=== PATIENT | female | born 1980 | race Caucasian/White ===

== ENCOUNTER 2016-09-21 09:46 | Emergency (ER) | payer MEDICAID ==
[~2016-09-21] VITALS: Ht 160 cm; Wt 68.5 kg
[2016-09-21 09:48] VITALS: Ht 160 cm; Wt 68.5 kg
[2016-09-21 10:47] LABS: ADD SCAN DIFF NO
[2016-09-21 10:51] LABS: BASOPHILS % 0.5 % (0.0-2.0); EOSINOPHILS # 0.1 10^3/ul (0.0-0.5); HEMATOCRIT 45.5 % (37.0-47.0); HEMOGLOBIN 15.4 g/dl (12.0-16.0); LYMPHOCYTES # 1.8 10^3/ul (0.8-2.9); LYMPHOCYTES % 22.3 % (15.0-51.0); MEAN CORPUSCULAR HEMOGLOBIN 30.4 pg (29.0-33.0); MEAN CORPUSCULAR HGB CONC 33.8 g/dl (32.0-37.0); MEAN CORPUSCULAR VOLUME 89.9 fl (82.0-101.0); MEAN PLATELET VOLUME 9.7 fl (7.4-10.4); MONOCYTE # 0.5 10^3/ul (0.3-0.9); MONOCYTES % 6.5 % (0.0-11.0); NEUTROPHIL # 5.4 10^3/ul (1.6-7.5); NEUTROPHILS % 69.2 % (39.0-77.0); PLATELET COUNT 268 10^3/UL (140-415); RED BLOOD COUNT 5.06 10^6/ul (4.20-5.40); RED CELL DISTRIBUTION WIDTH 13.4 % (11.5-14.5); WHITE BLOOD COUNT 7.8 10^3/ul (4.8-10.8)
[2016-09-21 11:01] LABS: ADD UMIC YES; UR ASCORBIC ACID NEGATIVE (NEGATIVE); UR BILIRUBIN (Dip) NEGATIVE (NEGATIVE); UR BLOOD (Dip) 1+ mg/dL (NEGATIVE); UR CLARITY CLEAR (CLEAR); UR COLOR YELLOW (YELLOW); UR GLUCOSE (Dip) NEGATIVE (NEGATIVE); UR KETONES (Dip) NEGATIVE (NEGATIVE); UR LEUKOCYTE ESTERASE (Dip) NEGATIVE Leu/ul (NEGATIVE); UR NITRITE (Dip) NEGATIVE (NEGATIVE); UR RBC 1 /HPF (0-5); UR SPECIFIC GRAVITY (Dip) 1.016 (1.003-1.030); UR TOTAL PROTEIN (Dip) NEGATIVE (NEGATIVE); UR UROBILINOGEN (Dip) NEGATIVE (NEGATIVE)
--- NOTE | 2016-09-21 11:20 | RADRPT ---
PROCEDURE: US OB. CLINICAL INDICATION: Vaginal bleeding in . TECHNIQUE: Transabdominal and endovaginal imaging of the uterus is available for review COMPARISON: None available FINDINGS: No intrauterine is identified. The endometrial stripe is homogeneous and measures 9 mm in thickness. The uterus is otherwise unremarkable. The right ovary measures 2.0 x 0.9 x 1.4 cm and the left ovary measures 2.2 x 1.2 x 1.3 cm. No adnexal mass is identified. No free fluid is noted within the pelvis. IMPRESSION: No intrauterine identified. There are no adnexal masses. Correlation with serial beta HC Gs and repeat pelvic ultrasound as clinically indicated, is recommended, as ectopic is not excluded on this examination. RPTAT: HH .Sheri Jones MD, Date Time Electronically viewed and signed by .Sheri Jones MD, on 09/21/2016 11:19 .G/
--- NOTE | 2016-09-21 11:52 | ERD ---
ER Documentation Chief Complaint Date/Time DATE: 09/21/16 TIME: 11:50 Chief Complaint 4 WEEKS WITH SPOTTING HPI This 36-year-old female presents approximately 4-5 weeks by dates. Having some spotting yesterday which improved today. She is fevers, vomiting, shortness with chest pain. She is a G4 para 3. Initially she thought she might want to terminate the but more recently she was decided to keep her . She is does not have care as of yet. ROS All systems reviewed and are negative except as per history of present illness. Allergies Allergies: Coded Allergies: No Known Drug Allergy (Verified Allergy, Unknown, 09/21/16) PMhx/Soc Medical and Surgical Hx: pt denies Medical Hx History of Surgery: Yes (3 C SECTION) Anesthesia Reaction: No Hx Neurological Disorder: No Hx Respiratory Disorders: No Hx Cardiac Disorders: No Hx Psychiatric Problems: No Hx Miscellaneous Medical Probl: No Hx Alcohol Use: No Hx Substance Use: No Hx Tobacco Use: No Smoking Status: Never smoker Physical Exam Vitals Vital Signs Date Time Temp Pulse Resp B/P Pulse Ox O2 Delivery O2 Flow Rate FiO2 09/21/16 09:48 98.1 73 20 121/73 99 Physical Exam Const: [] Alert, not ill-appearing. Head: Atraumatic Eyes: Normal Conjunctiva ENT: Normal External Ears, Nose and Mouth. Neck: Full range of motion..~ No meningismus. Resp: Clear to auscultation bilaterally Cardio: Regular rate and rhythm, no murmurs Abd: Soft, non tender, non distended. Normal bowel sounds Skin: No petechiae or rashes Back: No midline or flank tenderness Ext: No cyanosis, or edema Neur: Awake and alert Psych: Normal Mood and Affect Result Diagram: 09/21/16 1038 Results 24 hrs Laboratory Tests Test 09/21/16 10:35 09/21/16 10:38 Urine Color YELLOW Urine Clarity CLEAR Urine pH 5.0 Urine Specific [place] 1.016 Urine Ketones NEGATIVEmg/dL Urine Nitrite NEGATIVEmg/dL Urine Bilirubin NEGATIVEmg/dL Urine Urobilinogen NEGATIVEmg/dL Urine Leukocyte Esterase NEGATIVELeu/ul Urine Microscopic RBC 1/HPF Urine Microscopic WBC 0/HPF Urine Hemoglobin 1+mg/dL Urine Glucose NEGATIVEmg/dL Urine Total Protein NEGATIVEmg/dl White Blood Count 7.810^3/ul Red Blood Count 5.0610^6/ul Hemoglobin 15.4g/dl Hematocrit 45.5% Mean Corpuscular Volume 89.9fl Mean Corpuscular Hemoglobin 30.4pg Mean Corpuscular Hemoglobin Concent 33.8g/dl Red Cell Distribution Width 13.4% Platelet Count 58841^3/UL Mean Platelet Volume 9.7fl Neutrophils % 69.2% Lymphocytes % 22.3% Monocytes % 6.5% Eosinophils % 1.0% Basophils % 0.5% Nucleated Red Blood Cells % 0.0/100WBC Neutrophils # 5.410^3/ul Lymphocytes # 1.810^3/ul Monocytes # 0.510^3/ul Eosinophils # 0.110^3/ul Basophils # 0.010^3/ul Nucleated Red Blood Cells # 0.010^3/ul Beta HCG, Quantitative 221.5mIU/ml Procedures/MDM Quantitative hCG is 221. Patient is Rh+. Pelvic ultrasound shows no appreciable intrauterine or and no adnexal masses. Patient presents with vaginal bleeding which is actually improving and minimal suprapubic cramping. She HAS a 5 week . There is no visible intrauterine or extrauterine . Differential includes early normal , ectopic , complete or incomplete . Patient will be discharged home with instructions for 2 day recheck of hormones possibly ultrasound. Patient should otherwise return for worsening bleeding, fevers, new worsening symptoms. There is no signs or symptoms to suggest appendicitis, acute abdomen, additional causes of abdominal pain. Departure Diagnosis: Primary Impression: Vaginal bleeding in patient at less than 20 weeks ges... Condition: Stable Patient Instructions: Bleeding During Early Additional Instructions: No seen on ultrasound today. Recheck hormone level and possibly ultrasound in 48 hours. May be early normal , miscarriage or ectopic DIANELYS JACKMAN MD Sep 21, 2016 11:52
[2016-09-21 12:33] VITALS: BP 120/70; PULSE 79; RESP 20; TEMP 98.2
== END 2016-09-21 12:33 | disposition home or self-care (01) ==
LOC: FTE 09:46
DX: O20.9 Hemorrhage in early pregnancy, unspecified (principal); Z3A.01 Less than 8 weeks gestation of pregnancy
CPT/HCPCS: 36415; 76801; 76817; 81001; 84702; 85025; 86900; 86901; Z7502

== ENCOUNTER 2016-09-23 09:52 | Emergency (ER) | payer MEDICAID ==
[~2016-09-23] VITALS: Ht 157.5 cm; Wt 56.6 kg
[2016-09-23 09:59] VITALS: Ht 157.5 cm; Wt 56.6 kg
[2016-09-23 11:06] LABS: ADD SCAN DIFF NO
[2016-09-23 11:11] LABS: BASOPHILS % 0.4 % (0.0-2.0); EOSINOPHILS # 0.1 10^3/ul (0.0-0.5); EOSINOPHILS % 1.2 % (0.0-7.0); HEMATOCRIT 39.5 % (37.0-47.0); HEMOGLOBIN 14.1 g/dl (12.0-16.0); LYMPHOCYTES # 1.8 10^3/ul (0.8-2.9); LYMPHOCYTES % 19.6 % (15.0-51.0); MEAN CORPUSCULAR HGB CONC 35.7 g/dl (32.0-37.0); MEAN CORPUSCULAR VOLUME 89.8 fl (82.0-101.0); MONOCYTE # 0.6 10^3/ul (0.3-0.9); MONOCYTES % 6.7 % (0.0-11.0); NEUTROPHIL # 6.7 10^3/ul (1.6-7.5); NEUTROPHILS % 71.6 % (39.0-77.0); PLATELET COUNT 252 10^3/UL (140-415); RED CELL DISTRIBUTION WIDTH 13.1 % (11.5-14.5); WHITE BLOOD COUNT 9.3 10^3/ul (4.8-10.8)
--- NOTE | 2016-09-23 11:26 | RADRPT ---
PROCEDURE: US OB. CLINICAL INDICATION: Vaginal bleeding in . TECHNIQUE: Transabdominal and endovaginal imaging of the uterus is available for review COMPARISON: Pelvic ultrasound dated 09/21/2016 FINDINGS: No intrauterine is identified. The endometrial stripe is homogeneous and measures 15 mm i n thickness. There is a sub centimeter posterior intramural fibroid. The right ovary measures 2.7 x 1.0 x 1.6 cm and the left ovary measures 2.9 x 1.5 x 2.0 cm. No adnexal mass is identified. Small free fluid is noted within the pelvis. IMPRESSION: No significant interval change. No intrauterine identified. There are no adnexal masses. Correlation with serial beta HCGs and repeat pelvic ultrasound as clinically indicated, is recomme nded, as ectopic is not excluded on this examination. RPTAT: HH .Sheri Jones MD, Date Time Electronically viewed and signed by .Sheri Jones MD, on 09/23/2016 11:26 .G/
[2016-09-23] MEDS ORDERED: ACET325T33 PO (12:33)
--- NOTE | 2016-09-23 15:55 | ERD ---
ER Documentation Chief Complaint Date/Time DATE: 09/23/16 TIME: 15:54 Chief Complaint 6 WEEKS ,VAGINAL BLEEDING.NO PAIN HPI 36-year-old female patient who is a A0 presents to the ED complaining of vaginal bleeding that started 2 days ago. Reports that she does not know the name of her [employer] same. Patient states that the cramping is improving as well as the bleeding. Patient was instructed to return to the ED in 2 days for repeat beta hCG and ultrasound. Denies any dysuria, urgency, frequency, abdominal pain, nausea, vomiting, diarrhea, constipation. Reports that her last menses was on August 11, 2016. ROS All systems reviewed and are negative except as per history of present illness. Medications Home Meds Active Scripts Acetaminophen* (Tylenol*) 325 Mg Tablet, 1 TAB PO Q6 Y for PAIN AND OR ELEVATED TEMP, #20 TAB Prov:LV THOMAS PA-C 09/23/16 Allergies Allergies: Coded Allergies: No Known Drug Allergy (Verified Allergy, Unknown, 09/21/16) PMhx/Soc History of Surgery: Yes (3 C SECTION) Anesthesia Reaction: No Hx Neurological Disorder: No Hx Respiratory Disorders: No Hx Cardiac Disorders: No Hx Psychiatric Problems: No Hx Miscellaneous Medical Probl: No Hx Alcohol Use: No Hx Substance Use: No Hx Tobacco Use: No Smoking Status: Never smoker Physical Exam Vitals Vital Signs Date Time Temp Pulse Resp B/P Pulse Ox O2 Delivery O2 Flow Rate FiO2 09/23/16 09:59 98.3 72 18 120/71 98 Physical Exam Const: Qek-hpz-ljlvzpfzv, well-nourished. In no acute distress. Head: Atraumatic, normocephalic Eyes: Normal Conjunctiva without injection. No purulent discharge. ENT: Normal external ear, nose. Moist oropharynx without tonsillar exudates. Non -erythematous pharynx. Uvula midline. No drooling. No trismus. Neck: No cervical midline tenderness. Full range of motion. No meningismus. No cervical lymphadenopathy. No JVD. Resp: Clear to auscultation bilaterally. No wheezing, rhonchi, rales, or crackles. No accessory muscle use. No retractions. Cardio: Regular rate and rhythm. No murmurs, rubs or gallops. Abd: Soft, nontender, non distended. Normal bowel sounds. No palpable masses. No rebound tenderness. No guarding. Negative McBurney's point. Negative psoas sign. Negative obturator sign. Skin: No petechiae or rashes Back: No midline tenderness. No CVA tenderness. Ext: No cyanosis, or edema. Neur: Awake and alert. Normal gait. Normal coordination. Psych: Normal Mood and Affect Result Diagram: 09/23/16 1035 Results 24 hrs Laboratory Tests Test 09/23/16 10:35 White Blood Count 9.310^3/ul Red Blood Count 4.4010^6/ul Hemoglobin 14.1g/dl Hematocrit 39.5% Mean Corpuscular Volume 89.8fl Mean Corpuscular Hemoglobin 32.0pg Mean Corpuscular Hemoglobin Concent 35.7g/dl Red Cell Distribution Width 13.1% Platelet Count 85028^3/UL Mean Platelet Volume 10.0fl Neutrophils % 71.6% Lymphocytes % 19.6% Monocytes % 6.7% Eosinophils % 1.2% Basophils % 0.4% Nucleated Red Blood Cells % 0.0/100WBC Neutrophils # 6.710^3/ul Lymphocytes # 1.810^3/ul Monocytes # 0.610^3/ul Eosinophils # 0.110^3/ul Basophils # 0.010^3/ul Nucleated Red Blood Cells # 0.010^3/ul Beta HCG, Quantitative 306.7mIU/ml Procedures/MDM This is a 36-year-old female patient with no significant past medical history who is a A0 presents the ED for a repeat beta hCG and ultrasound. Patient is afebrile and nontoxic-appearing. An ultrasound, beta-hCG, CBC, type and RH, UA was ordered to evaluate patient. CBC: No evidence of severe infection or anemia beta Hc.5 increased to 306.7 today PROCEDURE: US OB. CLINICAL INDICATION: Vaginal bleeding in . TECHNIQUE: Transabdominal and endovaginal imaging of the uterus is available for review COMPARISON: Pelvic ultrasound dated 09/21/2016 FINDINGS: No intrauterine is identified. The endometrial stripe is homogeneous and measures 15 mm in thickness. There is a sub centimeter posterior intramural fibroid. The right ovary measures 2.7 x 1.0 x 1.6 cm and the left ovary measures 2.9 x 1.5 x 2.0 cm. No adnexal mass is identified. Small free fluid is noted within the pelvis. IMPRESSION: No significant interval change. No intrauterine identified. There are no adnexal masses. Correlation with serial beta HCGs and repeat pelvic ultrasound as clinically indicated, is recommended, as ectopic is not excluded on this examination. Patient's bleeding symptoms have stabilized while in the department. Low suspicion for symptomatic anemia, ectopic , sepsis, PID, appendicitis, ovarian torsion, tubo-ovarian abscess, surgical abdomen, or other emergent conditions. At this time ectopic cannot be ruled out. Patient was educated that there is a risk for threatened . Patient to follow up with [employer] in 2 days for further evaluation and treatment to repeat beta Hcg and ultrasound. Patient is to return sooner to the ED for any worsening symptoms. Patient's questions were answered. Patient understood and agreed with discharge plan. Departure Diagnosis: Primary Impression: Vaginal bleeding in patient at less than 20 weeks ges... Condition: Stable Patient Instructions: Bleeding During Early Referrals: [facility] [place] YOU HAVE RECEIVED A MEDICAL SCREENING EXAM AND THE RESULTS INDICATE THAT YOU DO NOT HAVE A CONDITION THAT REQUIRES URGENT TREATMENT IN THE EMERGENCY DEPARTMENT. FURTHER EVALUATION AND TREATMENT OF YOUR CONDITION CAN WAIT UNTIL YOU ARE SEEN IN YOUR DOCTORS OFFICE WITHIN THE NEXT 1-2 DAYS. IT IS YOUR RESPONSIBILITY TO MAKE AN APPOINTMENT FOR FOLOW-UP CARE. IF YOU HAVE A PRIMARY DOCTOR --you should call your primary doctor and schedule an appointment IF YOU DO NOT HAVE A PRIMARY DOCTOR YOU CAN CALL OUR PHYSICIAN REFERRAL HOTLINE AT IF YOU CAN NOT AFFORD TO SEE A PHYSICIAN YOU CAN CHOSE FROM THE FOLLOWING [facility] CLINICS [facility] [address] [facility] [address] [facility] [address] [facility] [address] [facility] [address] [facility] [facility]. [address] [facility]. [facility] YOU HAVE RECEIVED A MEDICAL SCREENING EXAM AND THE RESULTS INDICATE THAT YOU DO NOT HAVE A CONDITION THAT REQUIRES URGENT TREATMENT IN THE EMERGENCY DEPARTMENT. FURTHER EVALUATION AND TREATMENT OF YOUR CONDITION CAN WAIT UNTIL YOU ARE SEEN IN YOUR DOCTORS OFFICE WITHIN THE NEXT 1-2 DAYS. IT IS YOUR RESPONSIBILITY TO MAKE AN APPOINTMENT FOR FOLOW-UP CARE. IF YOU HAVE A PRIMARY DOCTOR --you should call your primary doctor and schedule and appointment IF YOU DO NOT HAVE A PRIMARY DOCTOR YOU CAN CALL OUR PHYSICIAN REFERRAL HOTLINE AT . IF YOU CAN NOT AFFORD TO SEE A PHYSICIAN YOU CAN CHOSE FROM THE FOLLOWING [facility] INSTITUTIONS: [facility] [address] [place] [address] [facility] [address] [place] [address] [facility] [address] [place] [address] [employer] [address] [facility] [address] [place] [address] OFFICE FAX W[facility] [address] [place] [address] [address] [address] [place] [address] KATIA AYALA [address] [facility], [address] [address] [address] [address] [place] [address] [facility] [address] [place] [address] [address] [facility] [id number] - ALYSSA MORALES [address], [facility] [address] [address] [address] [facility]. [address], [facility] [address] [id number] [place] [id number] [facility] Hours: 8:00 am - 5:00 pm Additional Instructions: Call your [employer] for an appointment during the next 2 days for repeat beta HCG and ultrasound. See the doctor sooner or return here if your condition worsens before your appointment time - worsening vaginal bleeding, fever, abdominal pain. LV THOMAS PA-C Sep 23, 2016 15:55
== END 2016-09-23 12:48 | disposition home or self-care (01) ==
LOC: FTE 09:52
DX: O20.9 Hemorrhage in early pregnancy, unspecified (principal); Z3A.01 Less than 8 weeks gestation of pregnancy
CPT/HCPCS: 36415; 76801; 76817; 84702; 85025